=== PATIENT | female | born 1935 | race Caucasian/White ===

== ENCOUNTER 2023-03-05 21:59 | Inpatient (IN) | payer MEDICARE, BC ==
[~2023-03-05] VITALS: Ht 165.1 cm; Wt 78.0 kg
[2023-03-05] MEDS ORDERED: HYDR-894 PO (22:27)
[2023-03-05] MEDS ORDERED: ATOR10TA PO (22:27)
[2023-03-05] MEDS ORDERED: CLON0.3P TD (22:27)
[2023-03-05 22:55] LABS: BASOPHILS % (AUTO) 0.2 % (0.0-2.0); EOSINOPHILS # (AUTO) 0.1 K/uL (0.0-0.7); EOSINOPHILS % (AUTO) 0.5 % (0.0-7.0); HEMATOCRIT 34.2 % (31.2-41.9); HEMOGLOBIN 10.7 g/dL (10.9-14.3); LYMPHOCYTES # (AUTO) 4.2 K/uL (0.8-4.8); MEAN CORPUSCULAR HEMOGLOBIN 21.5 uug (24.7-32.8); MEAN CORPUSCULAR HGB CONC 31 g/dL (32.3-35.6); MONOCYTES # (AUTO) 0.4 K/uL (0.1-1.30); MONOCYTES % (AUTO) 3.4 % (0.0-11.0); NEUTROPHILS # (AUTO) 8.5 K/uL (1.8-8.9); NEUTROPHILS % (AUTO) 63.9 % (38.5-71.5); PLATELET COUNT (AUTO) 187 K/uL (179-408); RED BLOOD CELL COUNT(AUTO) 4.96 MIL/uL (3.63-4.92); RED CELL DISTRIBUTION WIDTH 16.4 % (12.3-17.7); WHITE BLOOD COUNT (AUTO) 13.3 K/uL (3.8-11.8)
[2023-03-05 22:57] LABS: DIFFERENTIAL COMMENT 1
[2023-03-05 23:12] LABS: CALCIUM 9.1 mg/dL (8.5-10.1); CARBON DIOXIDE 29 mmol/L (21-32); CHLORIDE 104 mmol/L (98-107); CREATININE 0.7 mg/dL (0.6-1.3); GLUCOSE 157 mg/dL (74-106); POTASSIUM 3.7 mmol/L (3.5-5.1); SODIUM SERUM 142 mmol/L (136-145); UREA NITROGEN, BLOOD 14 mg/dL (7-18)
[2023-03-05 23:25] LABS: ALANINE AMINOTRANSFERASE 17 U/L (14-59); ALBUMIN 3.5 g/dL (3.4-5.0); ALKALINE PHOSPHATASE 52 U/L (50-136); ASPARTATE AMINOTRANSFERASE 8 U/L (15-37); BILIRUBIN,DIRECT 0.1 mg/dL (0.0-0.2); BILIRUBIN,TOTAL 0.2 mg/dL (0.2-1.0); NT-PRO BNP 127 pg/mL (0-125)
[2023-03-05 23:42] LABS: HYPOCHROMASIA 2+; LYMPHOCYTES % (MANUAL) 34 % (20-40); MONOCYTES % (MANUAL) 3 % (2-10); NEUTROPHILS % (MANUAL) 63 % (42-75); PLATELET ESTIMATE ADEQUATE
[2023-03-05 23:43] LABS: ANISOCYTOSIS 1+
[2023-03-06] MEDS ORDERED: ONDANSETRON 4 MG/2 ML VIAL IV PRN (00:30)
[2023-03-06] MEDS ORDERED: ACETAMINOPHEN 325 MG TABLET PO PRN (00:30)
[2023-03-06] MEDS ORDERED: hydrALAZINE HCL 20 MG/1 ML VIAL IV PRN (00:30)
[2023-03-06] MEDS ORDERED: HYDROCODONE/APAP 5-325MG TABLET PO ONE (00:45)
[2023-03-06] MEDS ORDERED: hydrALAZINE HCL 25 MG TABLET PO ONE (00:45)
[2023-03-06] MEDS ORDERED: hydrALAZINE HCL 25 MG TABLET ONE (00:56)
[2023-03-06] MEDS ORDERED: HYDROCODONE/APAP 5-325MG TABLET ONE (00:56)
[2023-03-06 02:30] VITALS: BP 172/63; TEMP 97.6; O2SAT 98
[2023-03-06] MEDS: MORPHINE SULFATE 2 MG/1 ML DISP.SYRIN IVP PRN ×4 (03:08→17:48)
[2023-03-06 04:42] VITALS: BP 136/60; TEMP 98.2; O2SAT 99
[2023-03-06] MEDS ORDERED: MORPHINE SULFATE 2 MG/1 ML DISP.SYRIN IV ONE (06:15)
[2023-03-06] MEDS ORDERED: LINA72CA PO (08:11)
[2023-03-06] MEDS ORDERED: FLAX1000 PO (08:11)
[2023-03-06] MEDS ORDERED: [UNRECOGNIZED DRUG - CODE] PO (08:11)
[2023-03-06] MEDS ORDERED: POLY17PO4 PO (08:11)
[2023-03-06] MEDS ORDERED: LACT1CAP73 PO (08:11)
[2023-03-06] MEDS: hydrALAZINE HCL 25 MG TABLET PO SCH ×3 (09:00→17:35)
[2023-03-06] MEDS: DOCUSATE SODIUM 100 MG CAPSULE PO SCH ×2 (09:48→17:34)
[2023-03-06] MEDS: MIRALAX 17 GM POWD.PACK PO SCH (09:48)
[2023-03-06] MEDS: HEPARIN SODIUM,PORCINE 5,000 UNITS/ML VIAL SQ SCH ×2 (09:52→17:37)
[2023-03-06 11:35] VITALS: BP 144/50; TEMP 97.5; O2SAT 95
[2023-03-06 16:39] VITALS: BP 134/46; TEMP 98.4; O2SAT 97
[2023-03-06 20:58] VITALS: BP 142/51; TEMP 98.2; O2SAT 98
[2023-03-06] MEDS: HYDROCODONE/APAP 5-325MG TABLET PO PRN (23:31)
[2023-03-07 05:30] VITALS: BP 125/50; TEMP 98; O2SAT 96
[2023-03-07] MEDS: HYDROCODONE/APAP 5-325MG TABLET PO PRN ×2 (07:03→23:50)
[2023-03-07 08:14] LABS: BASOPHILS % (AUTO) 0.1 % (0.0-2.0); EOSINOPHILS # (AUTO) 0.2 K/uL (0.0-0.7); HEMATOCRIT 30.5 % (31.2-41.9); HEMOGLOBIN 9.7 g/dL (10.9-14.3); LYMPHOCYTES # (AUTO) 3.1 K/uL (0.8-4.8); LYMPHOCYTES % (AUTO) 37.1 % (20.5-51.5); MEAN CORPUSCULAR HEMOGLOBIN 21.8 uug (24.7-32.8); MEAN CORPUSCULAR HGB CONC 32 g/dL (32.3-35.6); MEAN CORPUSCULAR VOLUME 68.6 fL (75.5-95.3); MONOCYTES # (AUTO) 0.3 K/uL (0.1-1.30); MONOCYTES % (AUTO) 3.7 % (0.0-11.0); NEUTROPHILS # (AUTO) 4.8 K/uL (1.8-8.9); NEUTROPHILS % (AUTO) 57.1 % (38.5-71.5); PLATELET COUNT (AUTO) 163 K/uL (179-408); RED BLOOD CELL COUNT(AUTO) 4.45 MIL/uL (3.63-4.92); RED CELL DISTRIBUTION WIDTH 16.2 % (12.3-17.7); WHITE BLOOD COUNT (AUTO) 8.3 K/uL (3.8-11.8)
[2023-03-07] MEDS: DOCUSATE SODIUM 100 MG CAPSULE PO SCH ×2 (08:17→16:15)
[2023-03-07] MEDS: hydrALAZINE HCL 25 MG TABLET PO SCH ×3 (08:17→16:15)
[2023-03-07] MEDS: MIRALAX 17 GM POWD.PACK PO SCH (08:17)
[2023-03-07] MEDS: HEPARIN SODIUM,PORCINE 5,000 UNITS/ML VIAL SQ SCH ×2 (08:19→16:16)
[2023-03-07 08:26] LABS: DIFFERENTIAL COMMENT 1
[2023-03-07 08:43] LABS: ALANINE AMINOTRANSFERASE 10 U/L (14-59); ALBUMIN 2.9 g/dL (3.4-5.0); ALKALINE PHOSPHATASE 44 U/L (50-136); ASPARTATE AMINOTRANSFERASE 9 U/L (15-37); BILIRUBIN,TOTAL 0.4 mg/dL (0.2-1.0); CALCIUM 8.5 mg/dL (8.5-10.1); CARBON DIOXIDE 25 mmol/L (21-32); CHLORIDE 103 mmol/L (98-107); CREATININE 0.4 mg/dL (0.6-1.3); GLUCOSE 123 mg/dL (74-106); POTASSIUM 3.5 mmol/L (3.5-5.1); SODIUM SERUM 138 mmol/L (136-145); TOTAL PROTEIN, SERUM 6.1 g/dL (6.4-8.2); UREA NITROGEN, BLOOD 10 mg/dL (7-18)
[2023-03-07 10:34] LABS: IRON, SERUM 34 ug/dL (50-175)
[2023-03-07 11:22] VITALS: BP 145/43; TEMP 98.2; O2SAT 95
[2023-03-07 15:38] VITALS: BP 153/45; TEMP 98.8; O2SAT 96
[2023-03-07 20:45] VITALS: BP 141/48; TEMP 98.9; O2SAT 97
[2023-03-08 04:15] VITALS: BP 130/44; TEMP 98.2; O2SAT 95
[2023-03-08] MEDS ORDERED: LINZESS 72 MG PO SCH (09:00)
[2023-03-08] MEDS: DOCUSATE SODIUM 100 MG CAPSULE PO SCH ×2 (09:42→17:16)
[2023-03-08] MEDS: MIRALAX 17 GM POWD.PACK PO SCH (09:42)
[2023-03-08] MEDS: hydrALAZINE HCL 25 MG TABLET PO SCH ×3 (09:43→17:17)
[2023-03-08] MEDS: HEPARIN SODIUM,PORCINE 5,000 UNITS/ML VIAL SQ SCH ×2 (09:44→17:18)
[2023-03-08] MEDS: HYDROCODONE/APAP 5-325MG TABLET PO PRN (10:37)
[2023-03-08 11:55] VITALS: BP 147/58; TEMP 98; O2SAT 97
[2023-03-08] MEDS ORDERED: HYDR-3972 PO (12:03)
[2023-03-08] MEDS ORDERED: MULT-1045 PO (12:03)
[2023-03-08] MEDS ORDERED: ACET325T53 PO (12:03)
[2023-03-08] MEDS ORDERED: POLY17PO4 PO (12:03)
[2023-03-08] MEDS ORDERED: DOCU-141 PO (12:03)
[2023-03-08] MEDS ORDERED: HYDR-894 PO (12:03)
[2023-03-08] MEDS ORDERED: HEPA50007 SQ (12:03)
[2023-03-08] MEDS ORDERED: Patient May Use Own Med- Md Ok PO (12:03)
[2023-03-08 16:00] VITALS: BP 128/48; TEMP 97.5; O2SAT 98
[2023-03-08 17:17] VITALS: BP 128/48
[2023-03-09] MEDS ORDERED: ATOR20TA PO (11:07)
[2023-03-09] MEDS ORDERED: HYDR25TA86 PO (11:18)
[2023-03-12] MEDS ORDERED: CLONIDINE-TTS 3 PATCH TD SCH (09:00)
== END 2023-03-08 18:20 | DRG 536 ==
LOC: ER 22:01 → MEDSURG3 03-06 00:55
PROVIDERS: ADMIT Internal Medicine; ATTEND Internal Medicine
DX: S32.512A Fracture of superior rim of left pubis, initial encounter for closed fracture (principal); J84.9 Interstitial pulmonary disease, unspecified; S32.592A Other specified fracture of left pubis, initial encounter for closed fracture; W01.0XXA Fall on same level from slipping, tripping and stumbling without subsequent striking against object, initial encounter; E66.9 Obesity, unspecified; D50.9 Iron deficiency anemia, unspecified; E78.5 Hyperlipidemia, unspecified; R73.9 Hyperglycemia, unspecified; K59.00 Constipation, unspecified; M25.512 Pain in left shoulder; I10 Essential (primary) hypertension; R60.0 Localized edema; M20.001 Unspecified deformity of right finger(s); M15.9 Polyosteoarthritis, unspecified; Z68.28 Body mass index [BMI] 28.0-28.9, adult; Z74.09 Other reduced mobility; Z81.3 Family history of other psychoactive substance abuse and dependence; Z79.899 Other long term (current) drug therapy
CPT/HCPCS: 36415; 70030-TC; 71045; 73502; 82378; 83550; 84100; 84484; 85025; 85730; 93005; G0378; J1644; J2270

== ENCOUNTER 2023-03-08 15:48 | Inpatient (IN) | payer MEDICARE, BC ==
[~2023-03-08] VITALS: Ht 165.1 cm; Wt 78.0 kg
[~2023-03-08 15:48] MED LIST: ACET325T53 PO; ATOR10TA PO; CLON0.3P TD; DOCU-141 PO; FLAX1000 PO; HEPA50007 SQ; HYDR-3972 PO; HYDR-894 PO; LACT1CAP73 PO; LINA72CA PO; MULT-1045 PO; POLY17PO4 PO; Patient May Use Own Med- Md Ok PO; [UNRECOGNIZED DRUG - CODE] PO
[2023-03-08] MEDS: DOCUSATE SODIUM 100 MG CAPSULE PO SCH (20:00)
[2023-03-08 21:00] VITALS: BP 142/65; TEMP 98.6; O2SAT 97
[2023-03-08] MEDS: HYDROCODONE/APAP 5-325MG TABLET PO PRN (23:04)
[2023-03-09 05:18] VITALS: BP 145/56; TEMP 97.7; O2SAT 98
[2023-03-09 07:49] LABS: BASOPHILS % (AUTO) 0.3 % (0.0-2.0); EOSINOPHILS # (AUTO) 0.2 K/uL (0.0-0.7); EOSINOPHILS % (AUTO) 2.4 % (0.0-7.0); HEMATOCRIT 30.9 % (31.2-41.9); HEMOGLOBIN 9.8 g/dL (10.9-14.3); LYMPHOCYTES # (AUTO) 3.5 K/uL (0.8-4.8); LYMPHOCYTES % (AUTO) 41.8 % (20.5-51.5); MEAN CORPUSCULAR HEMOGLOBIN 21.8 uug (24.7-32.8); MEAN CORPUSCULAR HGB CONC 32 g/dL (32.3-35.6); MEAN CORPUSCULAR VOLUME 68.7 fL (75.5-95.3); MONOCYTES # (AUTO) 0.4 K/uL (0.1-1.30); NEUTROPHILS # (AUTO) 4.2 K/uL (1.8-8.9); NEUTROPHILS % (AUTO) 50.5 % (38.5-71.5); PLATELET COUNT (AUTO) 172 K/uL (179-408); RED CELL DISTRIBUTION WIDTH 15.9 % (12.3-17.7); WHITE BLOOD COUNT (AUTO) 8.3 K/uL (3.8-11.8)
[2023-03-09 07:50] LABS: DIFFERENTIAL COMMENT 1
[2023-03-09 07:56] VITALS: BP 141/47; TEMP 98.3; O2SAT 98
[2023-03-09 08:37] LABS: THYROID STIMULATING HORMONE 2.031 mIU/mL (0.358-3.740)
[2023-03-09 08:43] LABS: ALANINE AMINOTRANSFERASE 71 U/L (14-59); ALBUMIN 2.7 g/dL (3.4-5.0); ALKALINE PHOSPHATASE 51 U/L (50-136); ASPARTATE AMINOTRANSFERASE 45 U/L (15-37); BILIRUBIN,TOTAL 0.5 mg/dL (0.2-1.0); CALCIUM 8.9 mg/dL (8.5-10.1); CARBON DIOXIDE 26 mmol/L (21-32); CHLORIDE 106 mmol/L (98-107); CHOLESTEROL 150 mg/dL (<200); CREATININE 0.5 mg/dL (0.6-1.3); GLUCOSE 119 mg/dL (74-106); HDL CHOLESTEROL 73 mg/dL (40-60); MAGNESIUM 2.3 mg/dL (1.8-2.4); PHOSPHOROUS 4.5 mg/dL (2.5-4.9); POTASSIUM 3.7 mmol/L (3.5-5.1); SODIUM SERUM 142 mmol/L (136-145); TOTAL PROTEIN, SERUM 6.3 g/dL (6.4-8.2); TRIGLYCERIDES 98 MG/DL (30-150); UREA NITROGEN, BLOOD 13 mg/dL (7-18); URIC ACID 3.7 mg/dL (2.6-6.0)
[2023-03-09] MEDS ORDERED: FLAXSEED OIL PO SCH (09:00)
[2023-03-09] MEDS ORDERED: Medication Not On Formulary EA ([Patient May Use Own Med- Md Ok] 1 EA) PO SCH (09:00)
[2023-03-09] MEDS: CULTURELLE CAPSULE PO SCH (09:31)
[2023-03-09] MEDS: MULTIVITAMINS,THERAPEUTIC TABLET PO SCH (09:31)
[2023-03-09] MEDS: hydrALAZINE HCL 25 MG TABLET PO SCH (09:33)
[2023-03-09] MEDS: HEPARIN SODIUM,PORCINE 5,000 UNITS/ML VIAL SQ SCH (09:35)
[2023-03-09] MEDS: MIRALAX 17 GM POWD.PACK PO SCH (09:35)
[2023-03-09] MEDS ORDERED: ATOR20TA PO (11:07)
[2023-03-09] MEDS ORDERED: HYDR25TA86 PO (11:18)
[2023-03-09] MEDS: ACETAMINOPHEN 325 MG TABLET PO PRN (13:22)
[2023-03-09 16:05] VITALS: BP 128/86; TEMP 98.2; O2SAT 97
[2023-03-09 20:00] VITALS: BP 147/54; TEMP 99.2; O2SAT 97
[2023-03-10 04:00] VITALS: BP 128/47; TEMP 98.5; O2SAT 97
[2023-03-10 07:55] VITALS: BP 143/45; TEMP 98.2; O2SAT 98
[2023-03-10] MEDS: HEPARIN SODIUM,PORCINE 5,000 UNITS/ML VIAL SQ SCH (09:07)
[2023-03-10] MEDS ORDERED: HYDR-894 PO (11:19)
[2023-03-10 15:06] VITALS: BP 152/60; TEMP 98.2; O2SAT 94
[2023-03-10] MEDS: hydrALAZINE HCL 25 MG TABLET PO SCH (16:53)
[2023-03-10 20:00] VITALS: BP 156/48; TEMP 98.5; O2SAT 96
[2023-03-11 04:00] VITALS: BP 142/59; TEMP 98.2; O2SAT 97
[2023-03-11 07:35] VITALS: BP 134/50; TEMP 98.2; O2SAT 98
[2023-03-11] MEDS: OXYCODONE/APAP 5-325 MG TABLET PO SCH (13:06)
[2023-03-11 15:24] VITALS: BP 130/45; TEMP 98.4; O2SAT 97
[2023-03-11 20:00] VITALS: BP 137/52; TEMP 98.7; O2SAT 97
[2023-03-12 04:00] VITALS: BP 145/57; TEMP 98.6; O2SAT 96
[2023-03-12 08:00] VITALS: BP 134/41; TEMP 98.4; O2SAT 95
[2023-03-12] MEDS: CLONIDINE-TTS 3 PATCH TD SCH (08:27)
[2023-03-12] MEDS ORDERED: CLONIDINE-TTS 3 PATCH TD SCH (09:00)
[2023-03-12 16:32] VITALS: BP 140/44; TEMP 97.9; O2SAT 95
[2023-03-12 20:00] VITALS: BP 144/45; TEMP 98.6; O2SAT 99
[2023-03-13 04:00] VITALS: BP 138/53; TEMP 98.5; O2SAT 95
[2023-03-13 07:40] VITALS: BP 141/48; TEMP 98.5; O2SAT 94
[2023-03-13 16:00] VITALS: BP 117/63; TEMP 98.4; O2SAT 96
[2023-03-13 20:00] VITALS: BP 138/58; TEMP 98.8; O2SAT 97
[2023-03-14 04:59] VITALS: BP 140/58; TEMP 98.4; O2SAT 96
[2023-03-14 07:44] VITALS: BP 148/45; TEMP 97.7; O2SAT 96
[2023-03-14 15:22] VITALS: BP 129/45; TEMP 98.2; O2SAT 97
[2023-03-14 22:33] VITALS: BP 135/56; TEMP 98.1; O2SAT 95
[2023-03-15 04:30] VITALS: BP 140/58; TEMP 97.4; O2SAT 97
[2023-03-15 07:52] VITALS: BP 129/47; TEMP 98.6; O2SAT 98
[2023-03-15 14:48] VITALS: BP 113/50; TEMP 98.6; O2SAT 98
[2023-03-15 20:00] VITALS: BP 140/47; TEMP 98.5; O2SAT 98
[2023-03-16 04:00] VITALS: BP 136/49; TEMP 98.6; O2SAT 96
[2023-03-16 07:51] VITALS: BP 135/43; TEMP 97.4; O2SAT 96
[2023-03-16 15:33] VITALS: BP 138/123; TEMP 98.7; O2SAT 100
[2023-03-16 16:25] VITALS: BP 138/51; TEMP 98.7; O2SAT 100
[2023-03-16 20:00] VITALS: BP 131/43; TEMP 98.5; O2SAT 95
[2023-03-17 04:00] VITALS: BP 133/50; TEMP 97.7; O2SAT 95
[2023-03-17 07:23] VITALS: BP 134/45; TEMP 97.6; O2SAT 98
[2023-03-17 15:34] VITALS: BP 139/44; TEMP 98.5; O2SAT 95
[2023-03-17 20:00] VITALS: BP 119/43; TEMP 98.3; O2SAT 96
[2023-03-18 04:00] VITALS: BP 130/46; TEMP 98; O2SAT 95
[2023-03-18 20:00] VITALS: BP 128/43; TEMP 98.7; O2SAT 94
[2023-03-19 04:00] VITALS: BP 146/44; TEMP 97.4; O2SAT 97
[2023-03-19 08:00] VITALS: BP 132/40; TEMP 97.9; O2SAT 94
[2023-03-19 16:27] VITALS: BP 125/75; TEMP 98.5; O2SAT 93
[2023-03-19 20:00] VITALS: BP 127/42; TEMP 98.3; O2SAT 97
[2023-03-20 04:00] VITALS: BP 117/45; TEMP 98.2; O2SAT 96
[2023-03-20 07:56] VITALS: BP 124/35; TEMP 97.9; O2SAT 97
[2023-03-20 16:18] VITALS: BP 112/46; TEMP 98.3; O2SAT 96
[2023-03-20 20:00] VITALS: TEMP 97.9
[2023-03-21 04:00] VITALS: TEMP 97.7
[2023-03-21 08:47] VITALS: BP 129/53; TEMP 98.4; O2SAT 97
[2023-03-21 13:00] VITALS: BP 133/50
[2023-03-21 16:45] VITALS: BP 119/48; TEMP 98.5; O2SAT 98
[2023-03-21 20:00] VITALS: BP 140/48; TEMP 98.5; O2SAT 95
[2023-03-22 04:05] VITALS: BP 136/46; TEMP 98.3; O2SAT 95
[2023-03-22 06:44] LABS: BASOPHILS % (AUTO) 0.4 % (0.0-2.0); EOSINOPHILS # (AUTO) 0.1 K/uL (0.0-0.7); EOSINOPHILS % (AUTO) 1.4 % (0.0-7.0); HEMATOCRIT 30.5 % (31.2-41.9); HEMOGLOBIN 9.8 g/dL (10.9-14.3); LYMPHOCYTES # (AUTO) 3.2 K/uL (0.8-4.8); LYMPHOCYTES % (AUTO) 44.8 % (20.5-51.5); MEAN CORPUSCULAR HEMOGLOBIN 21.8 uug (24.7-32.8); MEAN CORPUSCULAR HGB CONC 32 g/dL (32.3-35.6); MEAN CORPUSCULAR VOLUME 68.2 fL (75.5-95.3); MONOCYTES # (AUTO) 0.3 K/uL (0.1-1.30); MONOCYTES % (AUTO) 4.7 % (0.0-11.0); NEUTROPHILS # (AUTO) 3.5 K/uL (1.8-8.9); NEUTROPHILS % (AUTO) 48.7 % (38.5-71.5); PLATELET COUNT (AUTO) 282 K/uL (179-408); RED BLOOD CELL COUNT(AUTO) 4.47 MIL/uL (3.63-4.92); RED CELL DISTRIBUTION WIDTH 16.6 % (12.3-17.7); WHITE BLOOD COUNT (AUTO) 7.2 K/uL (3.8-11.8)
[2023-03-22 06:52] LABS: DIFFERENTIAL COMMENT 1
[2023-03-22 07:02] LABS: ALANINE AMINOTRANSFERASE 80 U/L (14-59); ALBUMIN 2.7 g/dL (3.4-5.0); ALKALINE PHOSPHATASE 207 U/L (50-136); ASPARTATE AMINOTRANSFERASE 38 U/L (15-37); BILIRUBIN,TOTAL 0.4 mg/dL (0.2-1.0); CALCIUM 8.7 mg/dL (8.5-10.1); CARBON DIOXIDE 26 mmol/L (21-32); CHLORIDE 107 mmol/L (98-107); CREATININE 0.4 mg/dL (0.6-1.3); GLUCOSE 111 mg/dL (74-106); PHOSPHOROUS 4.9 mg/dL (2.5-4.9); SODIUM SERUM 142 mmol/L (136-145); TOTAL PROTEIN, SERUM 6.2 g/dL (6.4-8.2); UREA NITROGEN, BLOOD 11 mg/dL (7-18)
[2023-03-22 07:35] VITALS: BP 125/43; TEMP 97.8; O2SAT 98
[2023-03-22] MEDS: FERROUS GLUCONATE 324 MG TABLET PO SCH (10:13)
[2023-03-22 12:36] VITALS: BP 130/54
== END 2023-03-22 15:50 | disposition home health service (06) | DRG 561 ==
PROVIDERS: ADMIT Physical Medicine & Rehabilitation Pain Medicine; ATTEND Physical Medicine & Rehabilitation Pain Medicine
DX: S32.592D Other specified fracture of left pubis, subsequent encounter for fracture with routine healing (principal); D50.9 Iron deficiency anemia, unspecified; E66.9 Obesity, unspecified; Z68.28 Body mass index [BMI] 28.0-28.9, adult; S40.012D Contusion of left shoulder, subsequent encounter; W01.0XXD Fall on same level from slipping, tripping and stumbling without subsequent striking against object, subsequent encounter; E78.5 Hyperlipidemia, unspecified; I10 Essential (primary) hypertension; K59.00 Constipation, unspecified; R73.9 Hyperglycemia, unspecified; M75.82 Other shoulder lesions, left shoulder; Z88.5 Allergy status to narcotic agent
CPT/HCPCS: 36415; 83735; 84100; 84443; 84550; 85025; 97535-GO-CO; A4663; J1644

== ENCOUNTER 2024-10-24 22:11 | Inpatient (IN) | payer MEDICARE, BC ==
[~2024-10-24] VITALS: Ht 165.1 cm; Wt 81.6 kg
[~2024-10-24 22:11] MED LIST changes: -ATOR10TA PO; +ATOR20TA PO; -HEPA50007 SQ; +HYDR25TA86 PO; -POLY17PO4 PO; -Patient May Use Own Med- Md Ok PO; -[UNRECOGNIZED DRUG - CODE] PO
[2024-10-24 22:59] LABS: *BILIRUBIN,URIN NEGATIVE (NEGATIVE); *BLOOD, URINE NEGATIVE (NEGATIVE); *CLARITY,URINE CLEAR (CLEAR); *COLOR,URINE YELLOW (YELLOW); *KETONES,URINE 3+ (NEGATIVE); *PROTEIN,URINE TRACE (NEGATIVE); *UROBILINOGEN,URINE 0.2 E.U./dl (NORMAL); LEUKOCYTE ESTERASE ,URINE 2+ (NEGATIVE); NITRITE, URINE NEGATIVE (NEGATIVE); UGLUCOSE NEGATIVE (NEGATIVE)
[2024-10-24 23:03] LABS: PLATELET COUNT (AUTO) 212 K/uL (179-408); RED BLOOD CELL COUNT(AUTO) 5.28 MIL/uL (3.63-4.92); RED CELL DISTRIBUTION WIDTH 16.1 % (12.3-17.7); WHITE BLOOD COUNT (AUTO) 15.5 K/uL (3.8-11.8)
[2024-10-24 23:12] LABS: SQUAMOUS EPITHELIAL CELL,UR FEW /HPF (NONE SEEN)
[2024-10-24 23:14] LABS: ASPARTATE AMINOTRANSFERASE 9 U/L (15-37); CREATININE 0.6 mg/dL (0.6-1.3); SODIUM SERUM 143 mmol/L (136-145); TOTAL PROTEIN, SERUM 7.5 g/dL (6.4-8.2); UREA NITROGEN, BLOOD 18 mg/dL (7-18)
[2024-10-24 23:33] LABS: EOSINOPHILS % (MANUAL) 1 % (0-8); LYMPHOCYTES % (MANUAL) 30 % (20-40); MONOCYTES % (MANUAL) 3 % (2-10); NEUTROPHILS % (MANUAL) 66 % (42-75); PLATELET ESTIMATE ADEQUATE
[2024-10-25] MEDS: IV NS 1000 ML 1,000 ML IV ONE (00:25)
[2024-10-25] MEDS: FAMOTIDINE. 20 MG/2 ML VIAL IV ONE (00:25)
[2024-10-25] MEDS ORDERED: PIPERACILLIN/TAZOBACTAM/D5W 50 ML IV ONE (01:31)
[2024-10-25] MEDS: PIPERACILLIN SODIUM/TAZOBACTAM 3.375 G in IV DEXTROSE 5% 50 ML IV ONE (01:47)
[2024-10-25] MEDS ORDERED: MAGNESIUM HYDROXIDE 30 ML LIQUID UDC PO PRN (02:15)
[2024-10-25] MEDS ORDERED: REMEDY ESSENTIAL ZINC PASTE 113 GM TP PRN (02:15)
[2024-10-25] MEDS ORDERED: SWABABLE VALVE TRANSFER SET EA MC ONE (03:18)
[2024-10-25] MEDS ORDERED: IV NORMAL SALINE 250 ML IV ONE (03:18)
[2024-10-25] MEDS ORDERED: IOHEXOL 300MG/ML 100 ML INFUS..BTL ONE (03:18)
[2024-10-25 05:00] VITALS: BP 149/46; TEMP 98.2; O2SAT 98
[2024-10-25] MEDS: IV D5 1/2 NS 1000 ML 1,000 ML IV PRN ×2 (05:16→18:49)
[2024-10-25] MEDS ORDERED: PIPERACILLIN SODIUM/TAZOBACTAM 3.375 G in IV DEXTROSE 5% 50 ML IV SCH (06:00)
[2024-10-25 08:04] VITALS: BP 149/46; TEMP 97.9; O2SAT 97
[2024-10-25] MEDS: PANTOPRAZOLE SODIUM 40 MG VIAL IV SCH (09:26)
[2024-10-25] MEDS: PIPERACILLIN SODIUM/TAZOBACTAM 3.375 G in IV DEXTROSE 5% 100 ML IV SCH (09:28)
[2024-10-25 10:28] LABS: PLATELET COUNT (AUTO) 176 K/uL (179-408); RED BLOOD CELL COUNT(AUTO) 4.91 MIL/uL (3.63-4.92); RED CELL DISTRIBUTION WIDTH 16.2 % (12.3-17.7); WHITE BLOOD COUNT (AUTO) 14.0 K/uL (3.8-11.8)
[2024-10-25 10:44] LABS: CREATININE 0.5 mg/dL (0.6-1.3); SODIUM SERUM 143 mmol/L (136-145); UREA NITROGEN, BLOOD 11 mg/dL (7-18)
[2024-10-25 10:50] LABS: ASPARTATE AMINOTRANSFERASE < 5 U/L (15-37); TOTAL PROTEIN, SERUM 6.2 g/dL (6.4-8.2)
[2024-10-25 11:39] VITALS: BP 136/56; TEMP 98.4; O2SAT 96
[2024-10-25] MEDS ORDERED: [UNRECOGNIZED DRUG - OTHER] PO (12:05)
[2024-10-25] MEDS ORDERED: FOLI1TAB27 PO (12:06)
[2024-10-25] MEDS ORDERED: MAGN100T PO ×2 (12:06)
[2024-10-25] MEDS ORDERED: magnesium taurate PO (12:07)
[2024-10-25] MEDS ORDERED: MAGNESIUM MALATE PO (12:08)
[2024-10-25] MEDS ORDERED: MILK175C5 PO (12:09)
[2024-10-25] MEDS ORDERED: FLAX340P PO (12:10)
[2024-10-25] MEDS: IV NORMAL SALINE 250 ML IV ONE (12:41)
[2024-10-25] MEDS: ACETAMINOPHEN 325 MG TABLET PO PRN (12:56)
[2024-10-25 15:34] VITALS: BP 122/64; TEMP 98.3; O2SAT 96
[2024-10-25 19:55] VITALS: BP 94/42; TEMP 99.8; O2SAT 97
[2024-10-25] MEDS: ATORVASTATIN 20 MG TABLET PO SCH (20:56)
[2024-10-25] MEDS ORDERED: MAGNESIUM GLYCINATE PO SCH (21:00)
[2024-10-26] VITALS (17 sets, daily range): BP systolic 107–131; BP diastolic 42–110; TEMP 98.4–99.1; O2SAT 96–98
[2024-10-26] MEDS: MORPHINE SULFATE 2 MG/1 ML DISP.SYRIN IV PRN (03:36)
[2024-10-26 06:55] LABS: PLATELET COUNT (AUTO) 198 K/uL (179-408); RED BLOOD CELL COUNT(AUTO) 5.05 MIL/uL (3.63-4.92); RED CELL DISTRIBUTION WIDTH 16.2 % (12.3-17.7); WHITE BLOOD COUNT (AUTO) 18.9 K/uL (3.8-11.8)
[2024-10-26 07:27] LABS: CREATININE 0.6 mg/dL (0.6-1.3); SODIUM SERUM 141 mmol/L (136-145); UREA NITROGEN, BLOOD 11 mg/dL (7-18)
[2024-10-26] MEDS ORDERED: POTASSIUM CHLORIDE 50 ML IV SCH (08:00)
[2024-10-26] MEDS: FOLIC ACID 1 MG TABLET PO SCH (08:17)
[2024-10-26] MEDS: POTASSIUM CHLORIDE 10 MEQ, LIDOCAINE-MPF 1% 1 ML in IV DEXTROSE 5% 100 ML IV SCH (08:55)
[2024-10-26] MEDS ORDERED: MIDAZOLAM HCL 2 MG/2 ML VIAL ONE (11:31)
[2024-10-26] MEDS ORDERED: FENTANYL CITRATE 100 MCG/2 ML AMPUL ONE (11:31)
[2024-10-26] MEDS ORDERED: LIDOCAINE-MPF 2% 5 ML VIAL ONE (12:28)
[2024-10-26] MEDS ORDERED: PHENYLEPHRINE 10 MG/1 ML VIAL ONE (12:28)
[2024-10-26] MEDS ORDERED: DEXAMETHASONE SOD PHOSPHATE 4 MG INJ ONE (12:28)
[2024-10-26] MEDS ORDERED: PROPOFOL 200 MG/20 ML BOTTLE ONE (12:28)
[2024-10-26] MEDS ORDERED: EPHEDRINE SULFATE 50 MG/ML AMPUL ONE (12:28)
[2024-10-26] MEDS ORDERED: ONDANSETRON 4 MG/2 ML VIAL ONE (12:28)
[2024-10-26] MEDS ORDERED: CEFAZOLIN 1 G VIAL ONE (12:28)
[2024-10-26] MEDS ORDERED: VECURONIUM BROMIDE 10 MG VIAL ONE (12:28)
[2024-10-26] MEDS ORDERED: NEOSTIGMINE METHYLSULFATE 10 MG/10 ML VIAL ONE (12:28)
[2024-10-26] MEDS ORDERED: KETOROLAC TROMETHAMINE 30 MG INJ ONE (12:28)
[2024-10-26] MEDS ORDERED: GLYCOPYRROLATE 0.2 MG/ML VIAL ONE (12:28)
[2024-10-26] MEDS ORDERED: SUCCINYLCHOLINE CHLORIDE 200 MG/10 ML VIAL ONE (12:28)
[2024-10-26] MEDS ORDERED: BUPIVACAINE PF 0.5% 30 ML VIAL ONE ×2 (12:37→12:39)
[2024-10-26] MEDS ORDERED: BUPIVACAINE/EPI PF 0.25% 10 ML VIAL IJ ONE ×2 (12:37→12:39)
[2024-10-26] MEDS ORDERED: SEVOFLURANE 250 ML BOTTLE ONE (13:42)
[2024-10-26] MEDS ORDERED: ALBUTEROL SULFATE 2.5 MG/3 ML NEBU ONE (14:56)
[2024-10-26] MEDS ORDERED: MORPHINE SULFATE 2 MG/1 ML DISP.SYRIN IV PRN (15:00)
[2024-10-26] MEDS: ALBUTEROL SULFATE 2.5 MG/ 0.5 ML NEBU NEB PRN (15:38)
[2024-10-26] MEDS: ONDANSETRON 4 MG/2 ML VIAL IV PRN (17:05)
[2024-10-26] MEDS: ACETAMINOPHEN 500 MG TABLET PO SCH (21:05)
[2024-10-26] MEDS: HYDROMORPHONE 1 MG/1 ML DISP.SYRIN IV PRN (22:36)
[2024-10-27] VITALS (23 sets, daily range): BP systolic 98–134; BP diastolic 35–87; TEMP 97.6–98.2; O2SAT 92–99
[2024-10-27 05:17] LABS: PLATELET COUNT (AUTO) 149 K/uL (179-408); RED BLOOD CELL COUNT(AUTO) 4.71 MIL/uL (3.63-4.92); RED CELL DISTRIBUTION WIDTH 16.4 % (12.3-17.7); WHITE BLOOD COUNT (AUTO) 13.1 K/uL (3.8-11.8)
[2024-10-27 05:19] LABS: CREATININE 0.7 mg/dL (0.6-1.3); SODIUM SERUM 139 mmol/L (136-145); UREA NITROGEN, BLOOD 11 mg/dL (7-18)
[2024-10-27 05:25] LABS: ASPARTATE AMINOTRANSFERASE 7.0 U/L (15-37); TOTAL PROTEIN, SERUM 5.3 g/dL (6.4-8.2)
[2024-10-27] MEDS: CLONIDINE-TTS 1 PATCH TD SCH (19:47)
[2024-10-27] MEDS: OXYCODONE HCL 5 MG TABLET PO PRN (20:33)
[2024-10-28] VITALS (8 sets, daily range): BP systolic 125–162; BP diastolic 48–53; TEMP 97.6–98.5; O2SAT 94–98
[2024-10-28 06:52] LABS: PLATELET COUNT (AUTO) 196 K/uL (179-408); RED BLOOD CELL COUNT(AUTO) 4.12 MIL/uL (3.63-4.92); RED CELL DISTRIBUTION WIDTH 16.1 % (12.3-17.7); WHITE BLOOD COUNT (AUTO) 13.9 K/uL (3.8-11.8)
[2024-10-28 07:24] LABS: ASPARTATE AMINOTRANSFERASE 18 U/L (15-37); CREATININE 0.5 mg/dL (0.6-1.3); SODIUM SERUM 142 mmol/L (136-145); TOTAL PROTEIN, SERUM 5.2 g/dL (6.4-8.2); UREA NITROGEN, BLOOD 12 mg/dL (7-18)
[2024-10-28] MEDS: ENOXAPARIN SODIUM 30 MG/0.3 ML DISP.SYRIN SUBCUT SCH (22:39)
[2024-10-29 01:11] VITALS: O2SAT 97
[2024-10-29] MEDS: OXYCODONE HCL 5 MG TABLET PO PRN (01:56)
[2024-10-29 05:04] VITALS: BP 150/58; TEMP 98; O2SAT 96
[2024-10-29 06:14] LABS: PLATELET COUNT (AUTO) 234 K/uL (179-408); RED BLOOD CELL COUNT(AUTO) 4.45 MIL/uL (3.63-4.92); RED CELL DISTRIBUTION WIDTH 16.1 % (12.3-17.7); WHITE BLOOD COUNT (AUTO) 11.8 K/uL (3.8-11.8)
[2024-10-29 06:31] LABS: ASPARTATE AMINOTRANSFERASE 16 U/L (15-37); CREATININE 0.5 mg/dL (0.6-1.3); IRON, SERUM 36 ug/dL (50-175); SODIUM SERUM 144 mmol/L (136-145); TOTAL PROTEIN, SERUM 6.0 g/dL (6.4-8.2); UREA NITROGEN, BLOOD 8 mg/dL (7-18)
[2024-10-29 06:33] LABS: EOSINOPHILS % (MANUAL) 1 % (0-8); LYMPHOCYTES % (MANUAL) 43 % (20-40); MONOCYTES % (MANUAL) 7 % (2-10); NEUTROPHILS % (MANUAL) 49 % (42-75)
[2024-10-29 06:34] LABS: PLATELET ESTIMATE ADEQUATE
[2024-10-29 08:20] VITALS: BP 168/48; TEMP 97.8; O2SAT 97
[2024-10-29 10:08] VITALS: BP 144/77; O2SAT 98
[2024-10-29 15:54] VITALS: BP 175/89; TEMP 98.6; O2SAT 99
[2024-10-29] MEDS: LOSARTAN POTASSIUM 50 MG TABLET PO ONE (16:35)
[2024-10-29 19:49] VITALS: BP 170/62; TEMP 97.9; O2SAT 97
[2024-10-29] MEDS ORDERED: TRAZODONE 50 MG TABLET PO PRN (20:00)
[2024-10-29] MEDS ORDERED: MELATONIN 3 MG TABLET PO SCH (21:00)
[2024-10-29] MEDS ORDERED: MELATONIN 3 MG TABLET PO PRN (21:15)
[2024-10-30] MEDS ORDERED: MELATONIN 3 MG TABLET PO PRN (01:30)
[2024-10-30 06:27] VITALS: BP 172/80; TEMP 97.6; O2SAT 95
[2024-10-30] MEDS: PANTOPRAZOLE SODIUM 40 MG TABLET.DR PO SCH (06:30)
[2024-10-30 06:53] LABS: PLATELET COUNT (AUTO) 227 K/uL (179-408); RED BLOOD CELL COUNT(AUTO) 4.50 MIL/uL (3.63-4.92); RED CELL DISTRIBUTION WIDTH 15.9 % (12.3-17.7); WHITE BLOOD COUNT (AUTO) 9.7 K/uL (3.8-11.8)
[2024-10-30 07:22] LABS: CREATININE 0.3 mg/dL (0.6-1.3); SODIUM SERUM 142 mmol/L (136-145); UREA NITROGEN, BLOOD 7 mg/dL (7-18)
[2024-10-30 08:24] VITALS: BP 145/60; TEMP 98.1; O2SAT 95
[2024-10-30] MEDS: POTASSIUM CHLORIDE 20 MEQ POWDER PACKET GT ONE (09:11)
[2024-10-30] MEDS: ENOXAPARIN SODIUM 40 MG/0.4 ML DISP.SYRIN SQ SCH (09:14)
[2024-10-30] MEDS ORDERED: ACETAMINOPHEN 500 MG TABLET PO PRN (11:20)
[2024-10-30] MEDS: ACETAMINOPHEN 325 MG TABLET PO PRN (11:30)
[2024-10-30 12:03] VITALS: BP 164/58; TEMP 97.8; O2SAT 97
[2024-10-30 12:10] VITALS: BP 149/60; O2SAT 97
[2024-10-30] MEDS: PIPERACILLIN SODIUM/TAZOBACTAM 3.375 G in IV DEXTROSE 5% 50 ML IV SCH (16:02)
[2024-10-30 16:24] VITALS: BP 158/62; TEMP 98.4; O2SAT 96
[2024-10-30] MEDS: SIMETHICONE 80 MG TAB.CHEW PO PRN (18:27)
[2024-10-30 19:00] VITALS: BP 172/59; TEMP 98; O2SAT 96
[2024-10-31 06:00] VITALS: BP 103/64; TEMP 98.2; O2SAT 97
[2024-10-31 06:41] LABS: PLATELET COUNT (AUTO) 269 K/uL (179-408); RED BLOOD CELL COUNT(AUTO) 4.44 MIL/uL (3.63-4.92); RED CELL DISTRIBUTION WIDTH 15.5 % (12.3-17.7); WHITE BLOOD COUNT (AUTO) 10.4 K/uL (3.8-11.8)
[2024-10-31 07:21] LABS: ASPARTATE AMINOTRANSFERASE 10 U/L (15-37); CREATININE 0.5 mg/dL (0.6-1.3); SODIUM SERUM 141 mmol/L (136-145); TOTAL PROTEIN, SERUM 5.4 g/dL (6.4-8.2); UREA NITROGEN, BLOOD 7 mg/dL (7-18)
[2024-10-31 11:36] VITALS: BP 140/60; TEMP 98.2; O2SAT 96
[2024-10-31 15:37] LABS: *OCCULT BLOOD STOOL NEGATIVE (NEGATIVE)
[2024-10-31 16:00] VITALS: BP 144/59; TEMP 98.8; O2SAT 98
[2024-10-31 19:48] VITALS: BP 157/50; TEMP 98.1; O2SAT 97
[2024-11-01 05:21] VITALS: BP 152/59; TEMP 97.9; O2SAT 97
[2024-11-01 06:34] LABS: PLATELET COUNT (AUTO) 281 K/uL (179-408); RED BLOOD CELL COUNT(AUTO) 4.29 MIL/uL (3.63-4.92); RED CELL DISTRIBUTION WIDTH 15.5 % (12.3-17.7); WHITE BLOOD COUNT (AUTO) 9.8 K/uL (3.8-11.8)
[2024-11-01 06:48] LABS: CREATININE 0.4 mg/dL (0.6-1.3); SODIUM SERUM 142 mmol/L (136-145); UREA NITROGEN, BLOOD 9 mg/dL (7-18)
[2024-11-01 10:53] VITALS: BP 125/45; TEMP 98.6; O2SAT 95
[2024-11-01 15:57] VITALS: BP 148/54; TEMP 97.9; O2SAT 95
[2024-11-01 19:15] VITALS: BP 143/57; TEMP 98.2; O2SAT 97
[2024-11-01] MEDS: ACIDOPHILUS/BULGARICUS CHEW TAB PO SCH (20:17)
[2024-11-02 06:37] LABS: PLATELET COUNT (AUTO) 355 K/uL (179-408); RED BLOOD CELL COUNT(AUTO) 4.57 MIL/uL (3.63-4.92); RED CELL DISTRIBUTION WIDTH 15.7 % (12.3-17.7); WHITE BLOOD COUNT (AUTO) 11.3 K/uL (3.8-11.8)
[2024-11-02 06:54] LABS: CREATININE 0.5 mg/dL (0.6-1.3); SODIUM SERUM 140 mmol/L (136-145); UREA NITROGEN, BLOOD 9 mg/dL (7-18)
[2024-11-02 06:59] VITALS: BP 156/63; TEMP 97.8; O2SAT 95
[2024-11-02] MEDS: MIRALAX 17 GM POWD.PACK PO SCH (08:18)
[2024-11-02] MEDS: PIPERACILLIN SODIUM/TAZOBACTAM 3.375 G in IV DEXTROSE 5% 100 ML IV SCH (08:29)
[2024-11-02 11:09] VITALS: BP 149/50; TEMP 98.5; O2SAT 99
[2024-11-02 15:03] VITALS: BP 137/47; TEMP 98.6; O2SAT 96
[2024-11-02 20:47] VITALS: BP 143/48; TEMP 98.2; O2SAT 96
[2024-11-02] MEDS: AMOXICILLIN-CLAVUL 875-125MG TABLET PO SCH (20:51)
[2024-11-03 06:42] LABS: PLATELET COUNT (AUTO) 301 K/uL (179-408); RED BLOOD CELL COUNT(AUTO) 4.33 MIL/uL (3.63-4.92); RED CELL DISTRIBUTION WIDTH 15.5 % (12.3-17.7); WHITE BLOOD COUNT (AUTO) 9.8 K/uL (3.8-11.8)
[2024-11-03 06:59] LABS: CREATININE 0.4 mg/dL (0.6-1.3); SODIUM SERUM 143 mmol/L (136-145); UREA NITROGEN, BLOOD 8 mg/dL (7-18)
[2024-11-03 07:07] VITALS: BP 132/46; TEMP 98.1; O2SAT 96
[2024-11-03] MEDS ORDERED: TRAZ-252 PO (10:11)
[2024-11-03] MEDS ORDERED: AMOX1TAB16 PO (10:11)
[2024-11-03] MEDS ORDERED: SIME80TA16 PO (10:11)
[2024-11-03] MEDS ORDERED: CLON1PAT TD (10:11)
[2024-11-03] MEDS ORDERED: ACID1TAB4 PO (10:11)
[2024-11-03] MEDS ORDERED: HYDR-894 PO (10:11)
[2024-11-03] MEDS ORDERED: PANT40TA49 PO (10:11)
[2024-11-03] MEDS ORDERED: POLY17PO4 PO (10:11)
[2024-11-03] MEDS ORDERED: MELA3TAB41 PO (10:11)
[2024-11-03] MEDS ORDERED: OXYC5TAB3 PO (10:11)
[2024-11-03] MEDS ORDERED: ENOX40DI SQ (10:11)
[2024-11-03 12:57] VITALS: BP 143/49; TEMP 98; O2SAT 95
== END 2024-11-03 13:03 | DRG 853 ==
LOC: ER 22:11 → MEDSURG3 10-25 02:05 → TELE3 10-26 10:06 → MEDSURG3 10-26 10:08 → CCU 10-26 16:41 → TELE3 10-27 20:55 → MEDSURG3 10-28 14:25
PROVIDERS: ADMIT Nurse Practitioner Acute Care
PROC: 05HB33Z Insertion of Infusion Device into Right Basilic Vein, Percutaneous Approach (ICD-10-PCS; 2024-10-26)
PROC: 0DTJ4ZZ Resection of Appendix, Percutaneous Endoscopic Approach (ICD-10-PCS; principal; 2024-10-26 12:30)
DX: A41.9 Sepsis, unspecified organism (principal); G92.8 Other toxic encephalopathy; K35.32 Acute appendicitis with perforation, localized peritonitis, and gangrene, without abscess; J69.0 Pneumonitis due to inhalation of food and vomit; J96.01 Acute respiratory failure with hypoxia; N39.0 Urinary tract infection, site not specified; J84.9 Interstitial pulmonary disease, unspecified; E44.0 Moderate protein-calorie malnutrition; D68.59 Other primary thrombophilia; K38.1 Appendicular concretions; R26.89 Other abnormalities of gait and mobility; Z68.30 Body mass index [BMI] 30.0-30.9, adult; E66.9 Obesity, unspecified; E88.09 Other disorders of plasma-protein metabolism, not elsewhere classified; E78.5 Hyperlipidemia, unspecified; I16.0 Hypertensive urgency; I10 Essential (primary) hypertension; B96.89 Other specified bacterial agents as the cause of diseases classified elsewhere; K57.30 Diverticulosis of large intestine without perforation or abscess without bleeding; K66.0 Peritoneal adhesions (postprocedural) (postinfection); Z63.72 Alcoholism and drug addiction in family; Z79.899 Other long term (current) drug therapy; Z90.710 Acquired absence of both cervix and uterus; Z88.5 Allergy status to narcotic agent; D50.9 Iron deficiency anemia, unspecified
CPT/HCPCS: 36415; 70030-TC; 71045; 74018; 83550; 83690; 83735; 84100; 84443; 84484; 85025; 85610; 87077; 87086; 93005; 93307; A4606; A4663; A9150; G0378; J0330; J0690; J1100; J1171; J1308; J1650; J1885; J2003; J2250; J2270; J2405; J2470; J2543; J2919; J3010; J3480; J3490; J7040; Q9967

== ENCOUNTER 2024-11-02 07:06 | Inpatient (IN) | payer MEDICARE, BC ==
[~2024-11-02] VITALS: Ht 162.6 cm; Wt 79.4 kg
[~2024-11-02 07:06] MED LIST changes: -ACET325T53 PO; -DOCU-141 PO; +FLAX340P PO; +FOLI1TAB27 PO; -HYDR-3972 PO; -HYDR-894 PO; -LACT1CAP73 PO; +MAGN100T PO; +MAGNESIUM MALATE PO; +MILK175C5 PO; -MULT-1045 PO; +[UNRECOGNIZED DRUG - OTHER] PO; +magnesium taurate PO
[2024-11-03] MEDS ORDERED: SIME80TA16 PO (10:11)
[2024-11-03] MEDS ORDERED: MELA3TAB41 PO (10:11)
[2024-11-03] MEDS ORDERED: AMOX1TAB16 PO (10:11)
[2024-11-03] MEDS ORDERED: OXYC5TAB3 PO (10:11)
[2024-11-03] MEDS ORDERED: HYDR-894 PO (10:11)
[2024-11-03] MEDS ORDERED: CLON1PAT TD (10:11)
[2024-11-03] MEDS ORDERED: ACID1TAB4 PO (10:11)
[2024-11-03] MEDS ORDERED: POLY17PO4 PO (10:11)
[2024-11-03] MEDS ORDERED: TRAZ-252 PO (10:11)
[2024-11-03] MEDS ORDERED: PANT40TA49 PO (10:11)
[2024-11-03] MEDS ORDERED: ENOX40DI SQ (10:11)
[2024-11-03 11:26] VITALS: BP 144/57; TEMP 98.1
[2024-11-03 11:57] VITALS: BP 144/57; TEMP 98.1
[2024-11-03 13:10] VITALS: BP 144/55; TEMP 97.2; O2SAT 97
[2024-11-03] MEDS ORDERED: MELATONIN 3 MG TABLET PO PRN (14:30)
[2024-11-03] MEDS ORDERED: SIMETHICONE 80 MG TAB.CHEW PO PRN (14:30)
[2024-11-03] MEDS ORDERED: TRAZODONE 50 MG TABLET PO PRN (14:30)
[2024-11-03] MEDS: CLONIDINE-TTS 1 PATCH TD SCH (17:56)
[2024-11-03] MEDS ORDERED: MAGNESIUM GLYCINATE PO SCH (18:00)
[2024-11-03] MEDS: AMOXICILLIN-CLAVUL 875-125MG TABLET PO SCH (21:51)
[2024-11-03] MEDS: ATORVASTATIN 20 MG TABLET PO SCH (21:51)
[2024-11-03] MEDS: ACIDOPHILUS/BULGARICUS CHEW TAB PO SCH (21:51)
[2024-11-03] MEDS: OXYCODONE HCL 5 MG TABLET PO PRN (21:58)
[2024-11-04] MEDS: REMEDY ESSENTIAL ZINC PASTE 113 GM TOP PRN (03:46)
[2024-11-04] MEDS: PANTOPRAZOLE SODIUM 40 MG TABLET.DR PO SCH (06:38)
[2024-11-04 06:40] VITALS: BP 159/65; TEMP 97.7; O2SAT 95
[2024-11-04 08:00] VITALS: BP 143/48; TEMP 97.5; O2SAT 94
[2024-11-04] MEDS: FOLIC ACID 1 MG TABLET PO SCH (08:35)
[2024-11-04] MEDS: ENOXAPARIN SODIUM 40 MG/0.4 ML DISP.SYRIN SQ SCH (08:35)
[2024-11-04] MEDS: MIRALAX 17 GM POWD.PACK PO SCH (08:35)
[2024-11-04] MEDS ORDERED: FLAXSEED OIL PO SCH (09:00)
[2024-11-04] MEDS ORDERED: Medication Not On Formulary EA (Linaclotide (Linzess) 72 MCG) PO SCH (09:00)
[2024-11-04] MEDS ORDERED: MILK THISTLE SEED EXTRACT 175 MG PO SCH (09:00)
[2024-11-04 16:00] VITALS: BP 135/54; TEMP 98.4; O2SAT 96
[2024-11-04 20:03] VITALS: BP 145/45; TEMP 98.7; O2SAT 94
[2024-11-04] MEDS: ACETAMINOPHEN 325 MG TABLET PO PRN (23:03)
[2024-11-05 06:00] VITALS: BP 121/49; TEMP 98.5; O2SAT 94
[2024-11-05 08:40] VITALS: BP 133/47; TEMP 97.9; O2SAT 98
[2024-11-05 20:13] VITALS: BP 139/49; TEMP 97.5; O2SAT 95
[2024-11-06 06:21] VITALS: BP 144/58; TEMP 98.2; O2SAT 96
[2024-11-06 09:27] VITALS: BP 136/87; TEMP 97.9; O2SAT 97
[2024-11-06 20:30] VITALS: BP 152/49; TEMP 98.1; O2SAT 97
[2024-11-07 05:47] VITALS: BP 129/47; TEMP 97.8; O2SAT 96
[2024-11-07 09:08] VITALS: BP 145/44; TEMP 98; O2SAT 95
[2024-11-07 09:11] VITALS: BP 129/68; TEMP 97.8; O2SAT 96
[2024-11-07 16:00] VITALS: BP 137/51; TEMP 97.8; O2SAT 96
[2024-11-07 20:32] VITALS: BP 122/37; TEMP 98.7; O2SAT 96
[2024-11-08 05:00] VITALS: BP 130/65; TEMP 97.7; O2SAT 95
[2024-11-08 07:31] VITALS: BP 146/53; TEMP 97.8; O2SAT 97
[2024-11-08 16:00] VITALS: BP 138/46; TEMP 97.6; O2SAT 97
[2024-11-08 20:00] VITALS: BP 141/52; TEMP 97.8; O2SAT 94
[2024-11-09 06:51] VITALS: BP 150/60; TEMP 97.6; O2SAT 97
[2024-11-09 07:55] VITALS: BP 146/49; TEMP 97.7; O2SAT 96
[2024-11-09 13:40] VITALS: BP 132/52
== END 2024-11-09 14:00 | disposition home health service (06) | DRG 949 ==
PROVIDERS: ADMIT Physical Medicine & Rehabilitation Pain Medicine; ATTEND Physical Medicine & Rehabilitation Pain Medicine
DX: Z48.815 Encounter for surgical aftercare following surgery on the digestive system (principal); A41.9 Sepsis, unspecified organism; K35.32 Acute appendicitis with perforation, localized peritonitis, and gangrene, without abscess; G92.8 Other toxic encephalopathy; J69.0 Pneumonitis due to inhalation of food and vomit; J96.01 Acute respiratory failure with hypoxia; E44.0 Moderate protein-calorie malnutrition; N39.0 Urinary tract infection, site not specified; E78.5 Hyperlipidemia, unspecified; E88.09 Other disorders of plasma-protein metabolism, not elsewhere classified; I10 Essential (primary) hypertension; I16.0 Hypertensive urgency; Z88.5 Allergy status to narcotic agent; K21.9 Gastro-esophageal reflux disease without esophagitis; R26.89 Other abnormalities of gait and mobility; M19.90 Unspecified osteoarthritis, unspecified site
CPT/HCPCS: 97535-GO-CO; J1650